=== PATIENT | male | born 1975 | race Caucasian/White ===

== ENCOUNTER 2022-11-08 01:51 | Inpatient (IN) | payer OTHER, SELFPAY ==
[~2022-11-08] VITALS: Ht 180.3 cm; Wt 78.5 kg
[2022-11-08 03:00] LABS: HEMATOCRIT 42.4 % (42.0-52.0); HEMOGLOBIN 14.2 g/dl (13.5-17.5); MEAN CORPUSCULAR HEMOGLOBIN 29.6 pg (27.0-33.0); MEAN CORPUSCULAR HGB CONC 33.5 g/dl (32.0-36.5); MEAN CORPUSCULAR VOLUME 88.5 fl (80.0-96.0); PLATELET COUNT, AUTOMATED 161 10^3/uL (150-450); RED BLOOD COUNT 4.79 10^6/uL (4.30-6.10); WHITE BLOOD COUNT 7.6 10^3/uL (4.0-10.0)
[2022-11-08 03:26] LABS: ETHYL ALCOHOL (ETHANOL) 0.003 % (0.000-0.010)
[2022-11-08 03:28] LABS: ACETAMINOPHEN LEVEL < 2.0 UG/ML (10.0-20.0); BILIRUBIN,DIRECT 0.2 MG/DL (<0.4); SALICYLATE LEVEL < 3.0 MG/DL (<30)
[2022-11-08 03:29] LABS: ALBUMIN 4.3 G/DL (3.2-5.2); ALKALINE PHOSPHATASE 81 U/L (46-116); ALT/SGPT 43 U/L (7.0-40); AST/SGOT 49 U/L (<34); BILIRUBIN,TOTAL 0.6 MG/DL (0.3-1.2); BLOOD UREA NITROGEN 16 MG/DL (9-23); CALCIUM LEVEL 9.4 MG/DL (8.5-10.1); CARBON DIOXIDE LEVEL 25 MMOL/L (20-31); CHLORIDE LEVEL 106 MMOL/L (98-107); CREATININE FOR GFR 0.83 MG/DL (0.70-1.30); GLOMERULAR FILTRATION RATE > 60.0 (>60); GLUCOSE, FASTING 109 MG/DL (60-100); SODIUM LEVEL 139 MMOL/L (136-145); TOTAL PROTEIN 7.1 G/DL (5.7-8.2)
[2022-11-08 03:30] LABS: THYROID STIMULATING HORMONE 1.223 uIU/ML (0.55-4.78)
[2022-11-08 06:26] LABS: BARBITURATES URINE NEGATIVE (NEGATIVE); COCAINE METABOLITE URINE NEGATIVE (NEGATIVE); METHADONE URINE NEGATIVE (NEGATIVE); OPIATES URINE NEGATIVE (NEGATIVE)
[2022-11-08 06:27] LABS: BENZODIAZEPINES URINE NEGATIVE (NEGATIVE); PHENCYCLIDINE URINE NEGATIVE (NEGATIVE)
[2022-11-08 06:39] LABS: AMPHETAMINES LEVEL URINE POSITIVE (NEGATIVE); CANNABINOIDS URINE POSITIVE (NEGATIVE)
[2022-11-08] MEDS ORDERED: HOME MED LIST COMPLETE! XX SCH ×2 (10:00→15:35)
[2022-11-08] MEDS: LORazepam 2 MG TAB PO ONE ×2 (10:10→10:13)
[2022-11-08] MEDS ORDERED: NICOTINE 21MG/24HR 1 EA TRANSDERMAL TD ONE (10:35)
[2022-11-08] MEDS ORDERED: METOPROLOL TART 25 MG TABLET PO ONE (14:00)
[2022-11-08] MEDS ORDERED: lisinopriL 5 MG TAB PO ONE (14:00)
[2022-11-08] MEDS ORDERED: MAALOX 30 ML SUSP *UDC PO PRN (14:15)
[2022-11-08] MEDS ORDERED: MOM 30ML SUSPENSION UDC PO PRN (14:15)
[2022-11-08] MEDS ORDERED: OLANZapine ORAL DISINTEGRATING TAB 5MG PO PRN (14:15)
[2022-11-08] MEDS ORDERED: ACETAMINOPHEN TAB 650MG DOSE (2X325MG) PO PRN (14:15)
[2022-11-08] MEDS ORDERED: traZODone 50 MG TAB PO PRN (14:15)
[2022-11-08] MEDS ORDERED: hydrOXYzine 50 MG TAB PO PRN (14:15)
[2022-11-08] MEDS ORDERED: LISI5TAB11 PO (15:00)
[2022-11-08] MEDS ORDERED: METO1TAB87 PO (15:00)
[2022-11-08] MEDS ORDERED: ARIP1TAB6 PO (15:01)
[2022-11-08] MEDS ORDERED: med rec comment (15:03)
[2022-11-08 17:50] VITALS: BP 160/100
[2022-11-08 21:01] VITALS: BP 138/86
[2022-11-09 06:38] VITALS: BP 151/95
[2022-11-09] MEDS ORDERED: CALAMINE LOTION 177 ML BTL TOP PRN (16:30)
[2022-11-09 17:08] VITALS: BP 138/100
[2022-11-09] MEDS: METOPROLOL TART 25 MG TABLET PO SCH (20:57)
[2022-11-09] MEDS ORDERED: CALAMINE LOTION 177 ML BTL TOP SCH (21:00)
[2022-11-10 06:34] VITALS: BP 140/100
[2022-11-10] MEDS: METOPROLOL TART 25 MG TABLET PO SCH ×2 (09:00→21:43)
[2022-11-10 15:00] VITALS: BP 138/84
[2022-11-10] MEDS ORDERED: NICOTINE POLACRILEX 2 MG GUM PO PRN (16:45)
[2022-11-11 07:12] VITALS: BP 140/90
[2022-11-11] MEDS: METOPROLOL TART 25 MG TABLET PO SCH (09:38)
[2022-11-11 09:39] VITALS: BP 140/90
[2022-11-11] MEDS ORDERED: NICO2GUM PO (10:57)
== END 2022-11-11 12:48 | disposition home or self-care (01) | DRG 751 ==
LOC: M ED 01:51 → M ED INP 14:15 → M PSY 17:58
PROVIDERS: ADMIT Psychiatry & Neurology Psychiatry; ATTEND Psychiatry & Neurology Psychiatry
DX: F29 Unspecified psychosis not due to a substance or known physiological condition (principal); F31.5 Bipolar disorder, current episode depressed, severe, with psychotic features; I10 Essential (primary) hypertension; Z91.14 Patient's other noncompliance with medication regimen; F12.159 Cannabis abuse with psychotic disorder, unspecified; F15.159 Other stimulant abuse with stimulant-induced psychotic disorder, unspecified; Z63.0 Problems in relationship with spouse or partner; F17.200 Nicotine dependence, unspecified, uncomplicated; L23.7 Allergic contact dermatitis due to plants, except food; R74.01 Elevation of levels of liver transaminase levels; Z79.899 Other long term (current) drug therapy

== ENCOUNTER 2024-07-12 06:20 | Emergency (ER) | payer OTHER, MEDICAID ==
[~2024-07-12] VITALS: Ht 180.3 cm; Wt 68.0 kg
[~2024-07-12 06:20] MED LIST: ARIP1TAB6 PO; LISI5TAB11 PO; METO1TAB87 PO; NICO2GUM PO; med rec comment
[2024-07-12 07:20] LABS: HEMATOCRIT 43.1 % (42.0-52.0); HEMOGLOBIN 14.6 g/dl (13.5-17.5); MEAN CORPUSCULAR HGB CONC 33.9 g/dl (32.0-36.5); MEAN CORPUSCULAR VOLUME 85.7 fl (80.0-96.0); PLATELET COUNT, AUTOMATED 125 10^3/uL (150-450); RED BLOOD COUNT 5.03 10^6/uL (4.30-6.10)
[2024-07-12 07:50] LABS: BARBITURATES URINE NEGATIVE (NEGATIVE); BENZODIAZEPINES URINE NEGATIVE (NEGATIVE); COCAINE METABOLITE URINE NEGATIVE (NEGATIVE); METHADONE URINE NEGATIVE (NEGATIVE); OPIATES URINE NEGATIVE (NEGATIVE); PHENCYCLIDINE URINE NEGATIVE (NEGATIVE)
[2024-07-12 07:53] LABS: ETHYL ALCOHOL (ETHANOL) < 0.003 % (0.000-0.010)
[2024-07-12 07:54] LABS: SALICYLATE LEVEL < 3.0 MG/DL (<30)
[2024-07-12 07:55] LABS: ALBUMIN 4.3 G/DL (3.2-5.2); ALKALINE PHOSPHATASE 84 U/L (46-116); ALT/SGPT 31 U/L (7.0-40); AMPHETAMINES LEVEL URINE POSITIVE (NEGATIVE); AST/SGOT 23 U/L (<34); BILIRUBIN,DIRECT 0.2 MG/DL (<0.4); BILIRUBIN,TOTAL 0.7 MG/DL (0.3-1.2); BLOOD UREA NITROGEN 15 MG/DL (9-23); CALCIUM LEVEL 9.5 MG/DL (8.5-10.1); CANNABINOIDS URINE POSITIVE (NEGATIVE); CARBON DIOXIDE LEVEL 24 MMOL/L (20-31); CHLORIDE LEVEL 108 MMOL/L (98-107); CREATININE FOR GFR 0.88 MG/DL (0.70-1.30); GLOMERULAR FILTRATION RATE > 60.0 (>60); GLUCOSE, FASTING 115 MG/DL (60-100); SODIUM LEVEL 137 MMOL/L (136-145); TOTAL PROTEIN 7.1 G/DL (5.7-8.2)
[2024-07-12 07:56] LABS: THYROID STIMULATING HORMONE 0.586 uIU/ML (0.55-4.78)
[2024-07-12] MEDS: NICOTINE 21MG/24HR 1 EA TRANSDERMAL TD ONE (08:11)
[2024-07-12] MEDS: METOPROLOL TART 25 MG TABLET PO SCH (09:21)
[2024-07-12] MEDS: LORazepam 2 MG TAB PO STA (09:21)
[2024-07-12 09:22] VITALS: BP 198/116
[2024-07-12] MEDS: lisinopriL 5 MG TAB PO SCH (09:22)
[2024-07-12] MEDS ORDERED: HOME MED LIST COMPLETE! XX SCH (10:25)
[2024-07-12 13:18] VITALS: BP 163/92; TEMP 98; O2SAT 99
== END 2024-07-12 13:43 | disposition home or self-care (01) ==
LOC: M ED 06:20
DX: F19.959 Other psychoactive substance use, unspecified with psychoactive substance-induced psychotic disorder, unspecified (principal); Z88.6 Allergy status to analgesic agent

== ENCOUNTER 2024-09-28 15:18 | Inpatient (IN) | payer OTHER, MEDICAID ==
[~2024-09-28] VITALS: Ht 177.8 cm; Wt 81.8 kg
[2024-09-28] MEDS: OLANZapine ORAL DISINTEGRATING TAB 5MG PO ONE (15:45)
[2024-09-28] MEDS: LORazepam 2 MG TAB PO ONE (15:45)
[2024-09-28 15:57] LABS: HEMATOCRIT 42.2 % (42.0-52.0); HEMOGLOBIN 14.4 g/dl (13.5-17.5); MEAN CORPUSCULAR HEMOGLOBIN 28.6 pg (27.0-33.0); MEAN CORPUSCULAR HGB CONC 34.1 g/dl (32.0-36.5); MEAN CORPUSCULAR VOLUME 83.7 fl (80.0-96.0); PLATELET COUNT, AUTOMATED 200 10^3/uL (150-450); RED BLOOD COUNT 5.04 10^6/uL (4.30-6.10); WHITE BLOOD COUNT 9.3 10^3/uL (4.0-10.0)
[2024-09-28 16:25] LABS: BARBITURATES URINE NEGATIVE (NEGATIVE); BENZODIAZEPINES URINE NEGATIVE (NEGATIVE); COCAINE METABOLITE URINE NEGATIVE (NEGATIVE); METHADONE URINE NEGATIVE (NEGATIVE); OPIATES URINE NEGATIVE (NEGATIVE); PHENCYCLIDINE URINE NEGATIVE (NEGATIVE)
[2024-09-28 16:27] LABS: ETHYL ALCOHOL (ETHANOL) 0.003 % (0.000-0.010)
[2024-09-28 16:29] LABS: ALBUMIN 4.2 G/DL (3.2-5.2); ALKALINE PHOSPHATASE 85 U/L (40-129); ALT/SGPT 23 U/L (7.0-40); AST/SGOT 14 U/L (<34); BILIRUBIN,DIRECT 0.3 MG/DL (<0.4); BILIRUBIN,TOTAL 0.8 MG/DL (0.3-1.2); BLOOD UREA NITROGEN 17 MG/DL (9-23); CALCIUM LEVEL 9.8 MG/DL (8.5-10.1); CARBON DIOXIDE LEVEL 24 MMOL/L (20-31); CHLORIDE LEVEL 108 MMOL/L (98-107); CREATININE FOR GFR 0.94 MG/DL (0.70-1.30); GLOMERULAR FILTRATION RATE > 60.0 (>60); GLUCOSE, FASTING 105 MG/DL (60-100); POTASSIUM SERUM 4.1 MMOL/L (3.5-5.1); SALICYLATE LEVEL < 3.0 MG/DL (<30); SODIUM LEVEL 141 MMOL/L (136-145); TOTAL PROTEIN 7.8 G/DL (5.7-8.2)
[2024-09-28 16:30] LABS: AMPHETAMINES LEVEL URINE POSITIVE (NEGATIVE); CANNABINOIDS URINE POSITIVE (NEGATIVE)
[2024-09-28 16:31] LABS: THYROID STIMULATING HORMONE 1.142 uIU/ML (0.55-4.78)
[2024-09-28] MEDS ORDERED: MOM 30ML SUSPENSION UDC PO PRN (18:00)
[2024-09-28] MEDS ORDERED: ACETAMINOPHEN 325 MG TAB PO PRN (18:00)
[2024-09-28] MEDS ORDERED: traZODone 50 MG TAB PO PRN (18:00)
[2024-09-28] MEDS ORDERED: diphenhydrAMINE 25MG CAP PO PRN (18:00)
[2024-09-28] MEDS ORDERED: MAALOX 30 ML SUSP *UDC PO PRN (18:00)
[2024-09-28] MEDS ORDERED: HOME MED LIST COMPLETE! XX SCH (18:05)
[2024-09-28] MEDS: NICOTINE 21MG/24HR 1 EA TRANSDERMAL TD SCH (21:33)
[2024-09-28 22:46] VITALS: BP 150/88; TEMP 97.6; O2SAT 97
[2024-09-29 06:25] VITALS: BP 162/100; TEMP 97; O2SAT 100
[2024-09-29] MEDS ORDERED: NICOTINE 21MG/24HR 1 EA TRANSDERMAL TD SCH (09:00)
[2024-09-29 14:45] VITALS: BP 148/94; TEMP 97.6; O2SAT 100
[2024-09-30 06:35] VITALS: BP 142/92; TEMP 97.7; O2SAT 100
[2024-09-30 15:29] VITALS: BP 158/96; TEMP 98.2; O2SAT 100
[2024-10-01] MEDS ORDERED: ABIL1TAB11 PO ×2 (05:43→09:20)
[2024-10-01] MEDS ORDERED: NICO21PAT TD (05:43)
[2024-10-01 06:42] VITALS: BP 144/92; TEMP 97.9; O2SAT 100
[2024-10-01] MEDS ORDERED: NICO1DIS12 TD (09:20)
== END 2024-10-01 10:59 | disposition home or self-care (01) | DRG 885 ==
LOC: M ED 15:18 → M ED INP 17:56 → M PSY 21:43
PROVIDERS: ADMIT Psychiatry & Neurology Psychiatry; ATTEND Psychiatry & Neurology Psychiatry
DX: F29 Unspecified psychosis not due to a substance or known physiological condition (principal); F31.9 Bipolar disorder, unspecified; I10 Essential (primary) hypertension; F15.10 Other stimulant abuse, uncomplicated; F12.10 Cannabis abuse, uncomplicated; F17.200 Nicotine dependence, unspecified, uncomplicated; Z63.0 Problems in relationship with spouse or partner; Z88.6 Allergy status to analgesic agent

== ENCOUNTER 2025-02-28 01:54 | Emergency (ER) | payer MEDICARE, MEDICAID ==
[~2025-02-28] VITALS: Ht 175.3 cm; Wt 80.7 kg
[~2025-02-28 01:54] MED LIST changes: +ABIL1TAB11 PO; +NICO1DIS12 TD; +NICO21PAT TD
[2025-02-28 02:36] VITALS: BP 194/111
[2025-02-28 03:09] LABS: BARBITURATES URINE NEGATIVE (NEGATIVE); COCAINE METABOLITE URINE NEGATIVE (NEGATIVE); METHADONE URINE NEGATIVE (NEGATIVE); OPIATES URINE NEGATIVE (NEGATIVE)
[2025-02-28 03:10] LABS: AMPHETAMINES LEVEL URINE POSITIVE (NEGATIVE); BENZODIAZEPINES URINE NEGATIVE (NEGATIVE); CANNABINOIDS URINE POSITIVE (NEGATIVE); PHENCYCLIDINE URINE NEGATIVE (NEGATIVE)
[2025-02-28 03:53] LABS: HEMOGLOBIN 12.7 g/dl (13.5-17.5); MEAN CORPUSCULAR HEMOGLOBIN 27.6 pg (27.0-33.0); MEAN CORPUSCULAR HGB CONC 33.4 g/dl (32.0-36.5); MEAN CORPUSCULAR VOLUME 82.6 fl (80.0-96.0); PLATELET COUNT, AUTOMATED 163 10^3/uL (150-450); WHITE BLOOD COUNT 7.2 10^3/uL (4.0-10.0)
[2025-02-28 04:07] LABS: ETHYL ALCOHOL (ETHANOL) < 0.003 % (0.000-0.010)
[2025-02-28 04:08] LABS: SALICYLATE LEVEL < 3.0 MG/DL (<30)
[2025-02-28 04:09] LABS: ALBUMIN 3.7 G/DL (3.2-5.2); ALKALINE PHOSPHATASE 72 U/L (40-129); ALT/SGPT 25 U/L (7.0-40); AST/SGOT 26 U/L (<34); BILIRUBIN,DIRECT 0.2 MG/DL (<0.4); BILIRUBIN,TOTAL 0.7 MG/DL (0.3-1.2); BLOOD UREA NITROGEN 15 MG/DL (9-23); CALCIUM LEVEL 8.7 MG/DL (8.5-10.1); CARBON DIOXIDE LEVEL 28 MMOL/L (20-31); CHLORIDE LEVEL 105 MMOL/L (98-107); CREATININE FOR GFR 0.82 MG/DL (0.70-1.30); GLOMERULAR FILTRATION RATE > 90.0 (>60); GLUCOSE, FASTING 99 MG/DL (60-100); POTASSIUM SERUM 3.7 MMOL/L (3.5-5.1); SODIUM LEVEL 141 MMOL/L (136-145); TOTAL PROTEIN 6.6 G/DL (5.7-8.2)
[2025-02-28 04:11] LABS: THYROID STIMULATING HORMONE 0.477 uIU/ML (0.55-4.78)
[2025-02-28] MEDS ORDERED: NORV5TAB PO (07:17)
[2025-02-28] MEDS ORDERED: OVERDOSE RESCUE KIT XX SCH (13:05)
[2025-02-28 13:56] VITALS: BP 145/87; TEMP 98.2; O2SAT 100
== END 2025-02-28 14:53 | disposition home or self-care (01) ==
LOC: M ED 01:54
DX: F19.10 Other psychoactive substance abuse, uncomplicated (principal); I10 Essential (primary) hypertension; F17.210 Nicotine dependence, cigarettes, uncomplicated; Z88.5 Allergy status to narcotic agent; Z79.899 Other long term (current) drug therapy